=== PATIENT | female | born 1930 | race Caucasian/White ===

== ENCOUNTER → 2016-09-24 14:11 | Outpatient (CLI) | payer MEDICARE, OTHER ==
[2012-12-02 12:59] VITALS: BMI 26.7
[~2016-09-24 14:11] MED LIST: ADVIL200 MG PO; ALTACE5 MG PO; ASPIRIN 81 MG E81 MG PO; CENTRUM SILVER1 TA2 PO; CLARITIN 10 MG10 MG PO; COREG6.25 MG PO; OYSCO 500+D TAB1 TAB PO; PRAVACHOL40 MG PO; SYNTHROID25 MCG PO; VITAMIN B-12500 MCG PO; VITAMIN E200 UNI1 PO
== END | disposition home or self-care (01) ==
LOC: D.CT 14:00
DX: R53.83 Other fatigue (principal); R06.02 Shortness of breath; R79.1 Abnormal coagulation profile